=== PATIENT | female | born 1990 | race Caucasian/White ===

== ENCOUNTER 2017-01-30 10:29 | Emergency (ER) | payer OTHER ==
[~2017-01-30] VITALS: Ht 160 cm; Wt 32.2 kg
[~2017-01-30 10:29] MED LIST: CAPS30CR TP; SUCR1ORA PO
--- NOTE | 2017-01-30 10:33 | ED.REPORT ---
HPI-Chest Pain Under 40 Date of Service January 30, 2017 ED Provider: The patient is a 26 year old female with history of IBS, who presents to the emergency department complaining of epigastric pain that has been constant for the last month. The patient has had similar symptoms intermittently over the last 2 years. This last episode has been going on for 1 month. She also complains of increased pain with breathing, nausea, vomiting, and diarrhea. The patient states, "I am scared I am going to ." Her parents report she has also had a lot of panic attack symptoms. The patient was previously taking nortriptyline but stopped 1 week ago because it doesn't seem to be helping. She is tearful and crying during the entire interview. Nursing Notes Stated Complaint: CHEST PAIN Nursing Notes Reviewed: Yes Allergies: Coded Allergies: No Known Allergies (Verified , 01/30/17) Scheduled Nortriptyline (Nortriptyline) 10 Mg/5 Ml Solution 10 MG PO DAILY Pt states she quit taking about 1 week ago Scheduled PRN Lorazepam (Ativan) 1 Mg Tablet 0.5 MG PO MORNING PRN PRN For Insomnia Ondansetron ODT (Zofran ODT) 4 Mg Tablet 4 MG PO Q4H PRN PRN For Nausea General Time Seen by MD: 10:33 Chief Complaint Other (epigastric pain) Hx Obtained From: Patient, Spouse, Other family... Arrived By: Walk-in Sudden in Onset?: No Onset Occurred: More than a week ago... (1 month) Symptom Duration: Constant Location: : Epigastric Quality: Painful Severity: Current: Moderate Severity: Maximum: Severe Recent Healthcare: No recent hospitalization Similar Sx Previous: Yes Past Medical History Past Medical History IBS Past Surgical History None reported Family History Noncontributory Smoking History Never Smoker Social History Patient endorses to smoking marijuana for several years on a daily basis. States that she quit recently. Alcohol Use: Denies alcohol use Other Social History: Local resident Ambulatory Status Independent Review of Systems Respiratory: Reports: Pleuritic pain Cardiovascular: Reports: Chest pain GI: Reports: Abdominal pain, Diarrhea, Nausea, Vomiting Psychiatric: Reports: Anxiety Complete sys rev & neg: except as marked. Physical Exam Initial Vital Signs Vital Signs (First) Date Time Temp Pulse Resp B/P Pulse Ox O2 Delivery O2 Flow Rate FiO2 01/30/17 10:34 36.6 83 16 152/94 100 Room Air Initial VS: Reviewed Head / Eyes: Atraumatic, Normocephalic, PERRL ENT: Mucous membranes moist, Conjunctiva normal, No scleral icterus Neck: Supple, Non-tender, Full range of motion Abdomen / GI: Soft, Non-tender, No guarding, No rebound, No distention Lymphatic: No lymphadenopathy Extremities: Vascular intact, Neuro intact, No swelling, No tenderness Skin: Warm, Dry, No cyanosis Neurologic: Alert, Oriented, Nonfocal General/Constitutional: Awake, Alert Behavior: Positive: Anxious, Tearful Appearance / Presentation: Positive: Obese Respiratory / Chest: Atraumatic, Breath sounds NL, Breath sounds = bilat, No respiratory distress, No rales, No rhonchi, No wheezing, No chest tenderness Cardiovascular: Heart rate NL, Regular rhythm, Heart sounds NL, No gallop, No murmurs, No rubs, Peripheral circulation NL, Pulses = bilaterally, No gross BP differential Abnormal Mood/Affect: Positive: Anxious Interpretation & Diagnostics Lab Results Interpretation Result Diagram: 01/30/17 1042 01/30/17 1042 Test 01/30/17 10:42 01/30/17 10:55 01/30/17 13:40 White Blood Count 9.7th/mm3 (3.8-10.1) Red Blood Count 5.09mil/mm3 (3.90-5.20) Hemoglobin 14.6g/dL (12.0-15.6) Hematocrit 43.8% (35.0-46.0) Mean Corpuscular Volume 86.1fL (81-100) Mean Corpuscular Hemoglobin 28.7pg (27.0-35.0) Mean Corpuscular Hemoglobin Concent 33.3% (32.0-37.0) Red Cell Distribution Width 15.0% (12.3-15.4) Platelet Count 249bil/L (150-400) Neutrophils (%) (Auto) 71.2% (40-74) Lymphocytes (%) (Auto) 21.0% (14-46) Monocytes (%) (Auto) 6.0% (4-12) Eosinophils (%) (Auto) 1.1% (0-5) Basophils (%) (Auto) 0.4% (0-3) Sodium Level 140mEq/L (134-144) Potassium Level 4.2mEq/L (3.5-5.2) Chloride Level 103mEq/L (97-108) Carbon Dioxide Level 21mmol/L (18-29) Blood Urea Nitrogen 8mg/dL (6-20) Creatinine 0.73mg/dL (0.57-1.00) Estimat Glomerular Filtration Rate 136mL/min (>59) Glucose Level 117mg/dL (60-99) Calcium Level 9.5mg/dL (8.5-10.1) Magnesium Level 2.0mg/dL (1.6-2.6) Total Bilirubin 0.5mg/dL (0.0-1.2) Aspartate Amino Transf (AST/SGOT) 20U/L (0-50) Alanine Aminotransferase (ALT/SGPT) 30U/L (0-32) Alkaline Phosphatase 62U/L (25-150) Total Protein 7.4g/dL (6.4-8.4) Albumin 4.4g/dL (3.4-5.0) Hold Urine Received (Received) D-Dimer < 0.50mg/L FEU (<0.50) Troponin T < 0.010ug/L (0.0-0.011) Thyroid Stimulating Hormone (TSH) 1.590uIU/mL (0.450-4.500) ECG Interpretation ECG Interpretation: Sinus rhythm with a rate of 73 No acute ischemia Time: 11:02 Interpreted by: ED physician X-Ray Chest Interpretation Chest Xray Interpretation: IMPRESSION: 1. No acute cardiopulmonary disease. Dictated by: Domingo Cuevas M.D. on 01/30/2017 at 11:42 Interpretation / Wet Read by: Interpret - Radiologist Re-Eval/Medical Decision Med Decision/Clinical Course No life-threatening cause for chest pain can be identified. After discussing further with the patient in family there is strong concern from them that this could be some sort of a panic disorder or anxiety variant. She seemed to have the most relief with IV Ativan. She will be discharged with a half milligram of Ativan in the morning, a total of 3 mg prescribed. As well as Zofran ODT. Return in follow-up precautions are given. She has been seen and evaluated by social work which have given her outpatient resources Source of Hx: Old records, Family, Parent Re-Evaluation/Progress #1: Time of Eval: 11:09 Re-Evaluation/Progress Note: Spoke with the patient's parents outside of the room. They report the patient has been doing this for 2 years. It seems to be worse when she runs out of her medications. Her parents are concerned that she has a psychiatric disorder. Re-Evaluation/Progress #2: Time of Eval: 12:30 Re-Evaluation/Progress Note: Rechecked the patient. Discussed results, diagnosis, and plan for discharge. The patient is still complaining of pain. Her family is requesting social work consult. Consultation : Consulted With: demurrage worker Call Returned at: 14:30 Note: ED social media campaign manager will evaluate the patient and give her outpatient resources. Counseled Regarding: Diagnosis, Lab results, Need for follow-up, When/why to return to ED Discharge & Departure Primary Impression: Epigastric pain Disposition: Home Discharge Condition All VS Reviewed: Yes Condition: Stable Additional Instructions: Thank you for entrusting us with your care today. Your workup today included a chest x-ray, EKG, and blood work. Your results are reassuring. There is no evidence of anything acutely dangerous at this time. You should followup with your regular doctor in the next few days to further manage this. Use the resources that were given to you by the social media campaign manager. You can take 0.5 mg of Ativan in the morning as needed. Return to the emergency department for new or worsening symptoms. Referrals: ABRAN BARNETT MD (PCP) Scribe Attestation Portions of this note were transcribed by Daphne Doty. I, Dr. Yañez personally performed the history, physical exam and medical decision-making; I reviewed and confirmed the accuracy of the information in the transcribed note. Signed by: Monserrat Singh, 01/30/2017 at 1500. copies to: ABRAN BARNETT MD, Timothy S DO January 30, 2017 10:33 Daphne Doty January 30, 2017 10:46
[2017-01-30 10:34] VITALS: BP 152/94; PULSE 83; RESP 16; O2SAT 100
[2017-01-30] MEDS ORDERED: 0.9% Sodium Chloride 1,000 ML IV ONE (10:45)
[2017-01-30 10:54] LABS: BASOPHILS % (AUTO) 0.4 % (0-3); EOSINOPHILS % (AUTO) 1.1 % (0-5); Mean Corpuscular Hemoglobin 28.7 pg (27.0-35.0); Mean Corpuscular Volume 86.1 fL (81-100); NEUTROPHILS % (AUTO) 71.2 % (40-74); Platelet Count 249 bil/L (150-400)
[2017-01-30 11:17] LABS: TROPONIN T < 0.010 ug/L (0.0-0.011)
[2017-01-30] MEDS ORDERED: NORT10SO PO (11:40)
--- NOTE | 2017-01-30 11:44 | DRSVH ---
PROCEDURE: X-RAY CHEST ONE VIEW, PORTABLE ([id number]) INDICATIONS: chest pain TECHNIQUE: One view of the chest was acquired. COMPARISON: [facility], , CHEST 1VW (PORTABLE), 02/09/2007, 6:02. FINDINGS: Surgical changes and devices: None. Lungs and pleura: No pleural effusions or pneumothorax. Lungs are clear. Mediastinum: Mediastinal contours appear normal. Heart size is normal. Bones and chest wall: No suspicious bony lesions. Overlying soft tissues appear unremarkable. IMPRESSION: 1. No acute cardiopulmonary disease. Dictated by: Domingo Cuevas M.D. on 01/30/2017 at 11:42 Approved by: Domingo Cuevas M.D. on 01/30/2017 at 11:43
[2017-01-30 13:13] VITALS: BP 139/85; PULSE 78; RESP 24; O2SAT 99
[2017-01-30] MEDS ORDERED: LORA-303 PO (15:43)
[2017-01-30] MEDS ORDERED: ONDA4TAB9 PO (15:53)
[2017-01-30 15:56] VITALS: BP 133/79
== END 2017-01-30 15:47 | disposition home or self-care (01) ==
LOC: SED 10:29
DX: R10.13 Epigastric pain (principal)
CPT/HCPCS: 36415; 71010; 80053; 81025; 83735; 84443; 84484; 85025; 85378; 93005; 96361; 96374; 96375; 99285; J2060; J2270; J7030